=== PATIENT | male | born 1955 | race Caucasian/White ===

== ENCOUNTER 2023-09-12 17:58 | Inpatient (IN) | payer MEDICARE, MEDICAID ==
[~2023-09-12] VITALS: Ht 165.1 cm; Wt 68.1 kg
[2023-09-12] VITALS: BP 157/84; PULSE 70; RESP 19; TEMP 97.7
[~2023-09-12 17:58] MED LIST: ALOG25TA PO; ATOR40TA70 PO; FERR325T6 PO; GABA-290 PO; LEVO-65 PO; LISI20TA31 PO; METF-874 PO; MULT-622 PO; TAMS-11 PO
[2023-09-12 18:00] VITALS: O2SAT 96
[2023-09-12] MEDS: ACETAMINOPHEN 325MG TABLET PO STA (18:59)
[2023-09-12] MEDS: METOCLOPRAMIDE HCL 10MG/2ML VIAL IV ONE (19:00)
[2023-09-12 19:09] LABS: BASOPHILS % 0.6 % (0.0-2.0); EOSINOPHILS % 2.8 % (0.0-5.0); HEMATOCRIT. 38.5 % (42.0-52.0); LYMPHOCYTES % 33.5 % (20.0-50.0); MEAN CORPUSCULAR HEMOGLOBIN 28.7 pg (28.0-32.0); MEAN CORPUSCULAR HGB CONC 33.8 g/dL (31.0-37.0); MEAN CORPUSCULAR VOLUME 84.8 fL (80.0-94.0); MEAN PLATELET VOLUME 7.9 fl (7.4-10.4); MONOCYTES % 8.8 % (2.0-8.0); NEUTROPHILS % 54.3 % (40.0-76.0); PLATELET 185 x1000/uL (130-400); RED BLOOD CELL COUNT 4.54 mill/uL (4.7-6.1); RED CELL DISTRIBUTION WIDTH 14.3 % (11.6-14.6); WHITE BLOOD COUNT 7.5 x1000/uL (4.5-11.0)
[2023-09-12 19:14] LABS: CHLORIDE 105 mEq/L (98-107); SODIUM 137 mEq/L (136-145)
[2023-09-12 19:15] LABS: CARBON DIOXIDE 26 mEq/L (21-32)
[2023-09-12 19:16] LABS: CALCIUM 9.4 mg/dL (8.7-10.4)
[2023-09-12 19:19] LABS: PROTHROMBIN TIME 10.9 sec (9.6-11.0)
[2023-09-12 19:20] LABS: CREATININE 0.8 mg/dL (0.6-1.3); GLUCOSE 109 mg/dL (70-105); UREA NITROGEN BLOOD 13 mg/dL (9-23)
[2023-09-12 19:21] LABS: TROPONIN I HIGH SENSITIVITY 18 ng/L (3.0-53)
[2023-09-12 19:22] LABS: ALANINE AMINOTRANSFERASE 17 IU/L (10-49); ALBUMIN 4.5 g/dL (3.2-4.8); ASPARTATE AMINOTRANSFERASE 16 IU/L (<34); BILIRUBIN DIRECT 0.3 mg/dL (<=3.0)
[2023-09-12 19:23] LABS: BILIRUBIN TOTAL 0.8 mg/dL (0.1-1.0); PROTEIN TOTAL 6.9 g/dL (6.0-8.3)
[2023-09-12 20:00] VITALS: BP 108/66; PULSE 70; RESP 20; TEMP 97.8
[2023-09-12 20:42] LABS: TROPONIN I HIGH SENSITIVITY 17 ng/L (3.0-53)
[2023-09-13] MEDS ORDERED: DEXTROSE 50% WATER 50ML SYRINGE IV PRN (00:30)
[2023-09-13] MEDS ORDERED: DOCUSATE SODIUM 100MG CAPSULE PO PRN (00:30)
[2023-09-13] MEDS ORDERED: ACETAMINOPHEN 650MG/20.3ML UDC GT PRN (00:30)
[2023-09-13] MEDS ORDERED: IPRATROPIUM/ALBUTEROL 0.5-3(2.5)MG/3ML NEB HHN PRN (00:30)
[2023-09-13] MEDS ORDERED: METF-416 PO (00:40)
[2023-09-13] MEDS ORDERED: CLON0.1T PO (00:40)
[2023-09-13] MEDS ORDERED: TAMS-11 PO (00:40)
[2023-09-13] MEDS ORDERED: LISI-186 PO (00:40)
[2023-09-13] MEDS ORDERED: FERR325T23 PO (00:40)
[2023-09-13] MEDS ORDERED: ALOG25TA2 PO (00:40)
[2023-09-13] MEDS ORDERED: AMLO5TAB88 PO (00:40)
[2023-09-13] MEDS ORDERED: INSU100V3 (00:40)
[2023-09-13] MEDS ORDERED: HYDR-4001 PO (00:40)
[2023-09-13] MEDS ORDERED: HYDRALAZINE 20MG/ML VIAL IV PRN (00:45)
[2023-09-13 04:00] VITALS: BP 130/74; PULSE 56; RESP 20; TEMP 97.8
[2023-09-13 04:30] VITALS: BP 124/60; PULSE 47; RESP 18; TEMP 97.8
[2023-09-13] MEDS: BLOOD SUGAR DIAGNOSTIC STRIP TEST SCH (07:07)
[2023-09-13] MEDS: INSULIN LISPRO 100 UNITS/ML SUBCUT SCH (07:27)
[2023-09-13 08:05] VITALS: BP 147/72; PULSE 50; RESP 20; TEMP 98
[2023-09-13] MEDS: ENOXAPARIN 40MG/0.4ML SYR SUBCUT SCH (08:35)
[2023-09-13] MEDS: TAMSULOSIN HCL 0.4MG SR CAPSULE PO SCH (08:35)
[2023-09-13] MEDS: AMLODIPINE 5MG TABLET PO SCH (08:36)
[2023-09-13] MEDS: HYDRALAZINE HCL 50MG TABLET PO SCH (08:36)
[2023-09-13] MEDS: PANTOPRAZOLE 40MG DR TABLET PO SCH (08:36)
[2023-09-13] MEDS ORDERED: CLONIDINE 0.1MG TABLET PO SCH (09:00)
[2023-09-13] MEDS ORDERED: LISINOPRIL 5MG TABLET PO SCH (09:00)
[2023-09-13 12:00] VITALS: BP 134/66; PULSE 64; RESP 18; TEMP 98.2
[2023-09-13 14:12] LABS: CLARITY URINE CLEAR (CLEAR); COLOR URINE YELLOW (YELLOW); GLUCOSE URINE NEGATIVE (NEGATIVE); KETONES URINE NEGATIVE (NEGATIVE); LEUKOCYTE ESTERASE URINE NEGATIVE (NEGATIVE); NITRITE URINE NEGATIVE (NEGATIVE); OCCULT BLOOD URINE NEGATIVE (NEGATIVE); PH URINE 6.5 (4.5-8.0); PROTEIN URINE NEGATIVE (NEGATIVE); SPECIFIC GRAVITY URINE 1.012 (1.005-1.030)
[2023-09-13 14:24] LABS: *AMPHETAMINES SCREEN URINE NEGATIVE (NEGATIVE)
[2023-09-13 14:25] LABS: *BARBITURATES SCREEN URINE NEGATIVE (NEGATIVE); *BENZODIAZEPINES SCREEN URINE NEGATIVE (NEGATIVE); *COCAINE SCREEN URINE NEGATIVE (NEGATIVE); CANNABINOID URINE SCREEN NEGATIVE (NEGATIVE); ECSTASY MDMA SCREEN URINE NEGATIVE (NEGATIVE); METHADONE URINE SCREEN NEGATIVE (NEGATIVE); OPIATES URINE SCREEN NEGATIVE (NEGATIVE); PHENCYCLIDINE URINE SCREEN NEGATIVE (NEGATIVE)
[2023-09-13] MEDS: KETOROLAC 15MG/ML VIAL IV NR (15:22)
[2023-09-13 16:02] VITALS: BP 107/70; PULSE 67; RESP 20; TEMP 98.1
[2023-09-13] MEDS: GUAIFENESIN 200MG/10ML SUGAR FREE UDC PO PRN (17:19)
[2023-09-13 20:00] VITALS: BP 150/71; PULSE 61; RESP 18; TEMP 98.1
[2023-09-13] MEDS: MAGNESIUM/ALUMINUM HYDROXIDE/SIMETHICONE 30ML UDC PO PRN (22:15)
[2023-09-13] MEDS: LISINOPRIL 5MG TABLET PO SCH (22:16)
[2023-09-13] MEDS: ATORVASTATIN CALCIUM 40MG TABLET PO SCH (22:17)
[2023-09-14] VITALS: BP 139/77; PULSE 64; RESP 18; TEMP 98.1
[2023-09-14] MEDS: ACETAMINOPHEN 325MG TABLET PO PRN (01:20)
[2023-09-14 04:00] VITALS: BP 138/78; PULSE 60; RESP 20; TEMP 98.2
[2023-09-14 07:38] LABS: BASOPHILS % 0.4 % (0.0-2.0); EOSINOPHILS % 3.5 % (0.0-5.0); HEMATOCRIT. 38.3 % (42.0-52.0); HEMOGLOBIN. 12.9 g/dL (14.0-18.0); LYMPHOCYTES % 38.8 % (20.0-50.0); MEAN CORPUSCULAR HGB CONC 33.7 g/dL (31.0-37.0); MEAN CORPUSCULAR VOLUME 83.1 fL (80.0-94.0); MEAN PLATELET VOLUME 8.2 fl (7.4-10.4); MONOCYTES % 10.8 % (2.0-8.0); NEUTROPHILS % 46.5 % (40.0-76.0); PLATELET 199 x1000/uL (130-400); RED CELL DISTRIBUTION WIDTH 14.4 % (11.6-14.6)
[2023-09-14 08:00] VITALS: BP 146/65; PULSE 59; RESP 18; TEMP 97.4
[2023-09-14 09:14] LABS: CALCIUM 9.5 mg/dL (8.7-10.4); CARBON DIOXIDE 27 mEq/L (21-32); CHLORIDE 111 mEq/L (98-107); POTASSIUM 4.4 mEq/L (3.5-5.1); SODIUM 140 mEq/L (136-145)
[2023-09-14 09:20] LABS: CREATININE 0.8 mg/dL (0.6-1.3); GLUCOSE 106 mg/dL (70-105); TRIGLYCERIDE 89 mg/dL (0-150); UREA NITROGEN BLOOD 17 mg/dL (9-23)
[2023-09-14 09:21] LABS: CHOLESTEROL 152 mg/dL (<200); LDL CHOLESTEROL 103 mg/dL (5-100)
[2023-09-14 09:22] LABS: HDL CHOLESTEROL 42 mg/dL (>55)
[2023-09-14 09:24] LABS: T4 FREE 1.06 ng/dL (0.89-1.76); THYROID STIMULATING HORMONE 1.26 uIU/mL (0.55-4.78)
[2023-09-14 12:00] VITALS: BP 134/70; PULSE 60; RESP 20; TEMP 97.7
[2023-09-14 16:00] VITALS: PULSE 58; RESP 18; TEMP 97.8
[2023-09-14 16:57] LABS: TROPONIN I HIGH SENSITIVITY 18 ng/L (3.0-53)
[2023-09-14] MEDS: HYDROCODONE/ACETAMINOPHEN 5/325MG TABLET PO PRN (17:15)
[2023-09-14] MEDS ORDERED: NALOXONE HCL 0.4MG/ML VIAL IV PRN (17:15)
[2023-09-14] MEDS: ONDANSETRON 4MG ODT PO PRN (17:47)
[2023-09-14 20:00] VITALS: BP 127/61; PULSE 57; RESP 20; TEMP 97.9
[2023-09-14 23:58] LABS: TROPONIN I HIGH SENSITIVITY 15 ng/L (3.0-53)
[2023-09-15] VITALS: BP 118/59; PULSE 59; RESP 18; TEMP 97.5
[2023-09-15 04:00] VITALS: BP 135/65; PULSE 57; RESP 20; TEMP 97.9
[2023-09-15 07:29] LABS: CARBON DIOXIDE 29 mEq/L (21-32); CHLORIDE 106 mEq/L (98-107); POTASSIUM 4.3 mEq/L (3.5-5.1); SODIUM 139 mEq/L (136-145)
[2023-09-15 07:30] LABS: CALCIUM 9.2 mg/dL (8.7-10.4)
[2023-09-15 07:35] LABS: CREATININE 0.7 mg/dL (0.6-1.3); GLUCOSE 107 mg/dL (70-105)
[2023-09-15 07:41] LABS: TROPONIN I HIGH SENSITIVITY 19 ng/L (3.0-53)
[2023-09-15 07:53] LABS: UREA NITROGEN BLOOD 10 mg/dL (9-23)
[2023-09-15 07:54] LABS: PHOSPHORUS 3.7 mg/dL (2.5-4.9)
[2023-09-15 07:55] LABS: BASOPHILS % 0.9 % (0.0-2.0); EOSINOPHILS % 4.2 % (0.0-5.0); HEMATOCRIT. 37.1 % (42.0-52.0); HEMOGLOBIN. 12.5 g/dL (14.0-18.0); MEAN CORPUSCULAR HEMOGLOBIN 28.2 pg (28.0-32.0); MEAN CORPUSCULAR HGB CONC 33.8 g/dL (31.0-37.0); MEAN CORPUSCULAR VOLUME 83.6 fL (80.0-94.0); MEAN PLATELET VOLUME 8.3 fl (7.4-10.4); MONOCYTES % 10.6 % (2.0-8.0); NEUTROPHILS % 45.3 % (40.0-76.0); PLATELET 193 x1000/uL (130-400); RED BLOOD CELL COUNT 4.44 mill/uL (4.7-6.1); RED CELL DISTRIBUTION WIDTH 14.2 % (11.6-14.6)
[2023-09-15 08:00] VITALS: BP 152/68; PULSE 65; RESP 22; TEMP 98.6
[2023-09-15] MEDS ORDERED: HYDR50TA40 MT (10:19)
[2023-09-15] MEDS ORDERED: DIPHENHYDRAMINE HCL/ZINC ACET 28 GM CREAM TOP ONE (10:30)
[2023-09-15 12:00] VITALS: BP 104/68; PULSE 113; RESP 19; TEMP 97.7; TEMP 97.9
[2023-09-15 17:46] VITALS: BP 153/68; PULSE 80; RESP 18
== END 2023-09-15 17:55 | disposition home or self-care (01) | DRG 305 ==
LOC: ER 17:58 → 5WST 22:49 → 7WST 09-13 03:33
PROVIDERS: ADMIT Internal Medicine; ATTEND Internal Medicine
DX: I16.0 Hypertensive urgency (principal); R00.1 Bradycardia, unspecified; T46.5X5A Adverse effect of other antihypertensive drugs, initial encounter; D64.9 Anemia, unspecified; E11.21 Type 2 diabetes mellitus with diabetic nephropathy; E78.5 Hyperlipidemia, unspecified; F41.9 Anxiety disorder, unspecified; I10 Essential (primary) hypertension; M16.10 Unilateral primary osteoarthritis, unspecified hip; K57.30 Diverticulosis of large intestine without perforation or abscess without bleeding; X58.XXXA Exposure to other specified factors, initial encounter; Z86.73 Personal history of transient ischemic attack (TIA), and cerebral infarction without residual deficits; Z79.899 Other long term (current) drug therapy; Z91.148 Patient's other noncompliance with medication regimen for other reason; Z79.4 Long term (current) use of insulin; Z79.84 Long term (current) use of oral hypoglycemic drugs; Y93.89 Activity, other specified; Y92.89 Other specified places as the place of occurrence of the external cause; Y99.8 Other external cause status
CPT/HCPCS: 36415; 71045; 80048; 80061; 80076; 80305; 81003; 82962; 83036; 83735; 83880; 84100; 84439; 84443; 84484; 85025; 85379; 93005; 93306; 93970; 97162; 97166; 99285; J1650; J1885; J2765; Q0162

== ENCOUNTER 2024-11-15 09:56 | Emergency (ER) | payer MEDICARE, MEDICAID ==
[~2024-11-15] VITALS: Ht 162.6 cm; Wt 73.0 kg
[~2024-11-15 09:56] MED LIST changes: -ALOG25TA PO; +AMLO10TA80 PO; +ASPI-1406 PO; -FERR325T6 PO; -GABA-290 PO; +ISOS120T13 MT; -LEVO-65 PO; -METF-874 PO; -TAMS-11 PO; +TAMS-54 PO
[2024-11-15 09:59] VITALS: O2SAT 98
[2024-11-15 10:33] VITALS: TEMP 36.7
[2024-11-15] MEDS: IBUPROFEN 600MG TABLET PO ONE (10:53)
[2024-11-15] MEDS: GABAPENTIN 300MG CAPSULE PO ONE (10:53)
[2024-11-15 11:03] LABS: BASOPHILS % 0.5 % (0.0-2.0); EOSINOPHILS % 1.9 % (0.0-5.0); HEMATOCRIT. 34.9 % (42.0-52.0); HEMOGLOBIN. 11.8 g/dL (14.0-18.0); LYMPHOCYTES % 30.5 % (20.0-50.0); MEAN PLATELET VOLUME 7.9 fl (7.4-10.4); MONOCYTES % 10.7 % (2.0-8.0); NEUTROPHILS % 56.4 % (40.0-76.0); PLATELET 162 x1000/uL (130-400); RED BLOOD CELL COUNT 4.02 mill/uL (4.7-6.1); RED CELL DISTRIBUTION WIDTH 14.2 % (11.6-14.6)
[2024-11-15 11:25] LABS: CREATININE 1.0 mg/dL (0.6-1.3); UREA NITROGEN BLOOD 15 mg/dL (9-23)
[2024-11-15 11:27] LABS: ASPARTATE AMINOTRANSFERASE 17 IU/L (<34); BILIRUBIN DIRECT 0.3 mg/dL (<=3.0); BILIRUBIN TOTAL 0.7 mg/dL (0.1-1.0); PROTEIN TOTAL 6.3 g/dL (6.0-8.3)
[2024-11-15] MEDS ORDERED: GABA-1180 MT (12:19)
[2024-11-15 12:39] VITALS: BP 114/61; PULSE 58; RESP 11; O2SAT 98
== END 2024-11-15 13:03 | disposition home or self-care (01) ==
LOC: ER 09:56
DX: E11.40 Type 2 diabetes mellitus with diabetic neuropathy, unspecified (principal); E78.00 Pure hypercholesterolemia, unspecified; I10 Essential (primary) hypertension; D64.9 Anemia, unspecified; F41.9 Anxiety disorder, unspecified; E11.9 Type 2 diabetes mellitus without complications; Z98.890 Other specified postprocedural states; Z79.899 Other long term (current) drug therapy
CPT/HCPCS: 36415; 80048; 80076; 83880; 85025; 85379; 99283; A4606

== ENCOUNTER 2024-12-19 11:59 | Emergency (ER) | payer MEDICARE, MEDICAID ==
[~2024-12-19] VITALS: Ht 172.7 cm; Wt 67.0 kg
[~2024-12-19 11:59] MED LIST changes: +GABA-1180 MT
[2024-12-19 12:01] VITALS: O2SAT 97
[2024-12-19 14:51] LABS: BASOPHILS % 0.8 % (0.0-2.0); EOSINOPHILS % 8.6 % (0.0-5.0); HEMATOCRIT. 36.9 % (42.0-52.0); HEMOGLOBIN. 12.5 g/dL (14.0-18.0); LYMPHOCYTES % 29.0 % (20.0-50.0); MEAN PLATELET VOLUME 8.1 fl (7.4-10.4); MONOCYTES % 10.2 % (2.0-8.0); NEUTROPHILS % 51.4 % (40.0-76.0); PLATELET 179 x1000/uL (130-400); RED BLOOD CELL COUNT 4.30 mill/uL (4.7-6.1); RED CELL DISTRIBUTION WIDTH 13.9 % (11.6-14.6)
[2024-12-19 15:05] LABS: INR 1.0
[2024-12-19 15:06] LABS: CREATININE 0.9 mg/dL (0.6-1.3); UREA NITROGEN BLOOD 9 mg/dL (9-23)
[2024-12-19 15:08] LABS: ASPARTATE AMINOTRANSFERASE 21 IU/L (<34); BILIRUBIN DIRECT 0.3 mg/dL (<=3.0); BILIRUBIN TOTAL 0.8 mg/dL (0.1-1.0); PROTEIN TOTAL 7.2 g/dL (6.0-8.3)
[2024-12-19] MEDS ORDERED: LISI20TA31 MT (18:55)
[2024-12-19] MEDS ORDERED: ISOS120T13 MT (18:55)
[2024-12-19] MEDS ORDERED: AMLO10TA80 MT (18:55)
[2024-12-19] MEDS ORDERED: TAMS-54 MT (18:55)
[2024-12-19] MEDS ORDERED: TC1C15 TP (18:55)
[2024-12-19] MEDS ORDERED: METF-416 MT (18:55)
[2024-12-19] MEDS ORDERED: ATOR40TA70 MT (18:55)
[2024-12-19] MEDS ORDERED: GABA-1180 MT (18:55)
[2024-12-19] MEDS ORDERED: ASPI-1497 MT (18:55)
[2024-12-19] MEDS: LISINOPRIL 20MG TABLET PO ONE (18:59)
[2024-12-19] MEDS: GABAPENTIN 300MG CAPSULE PO ONE (18:59)
[2024-12-19] MEDS: AMLODIPINE 10MG TABLET PO ONE (18:59)
[2024-12-19] MEDS: METFORMIN HCL 500MG TABLET PO STA (19:08)
[2024-12-19 20:50] VITALS: BP 154/66; PULSE 56; RESP 16; TEMP 36.7; O2SAT 96
== END 2024-12-19 21:15 ==
LOC: ER 11:59
DX: L74.0 Miliaria rubra (principal); R60.0 Localized edema; E11.9 Type 2 diabetes mellitus without complications; I10 Essential (primary) hypertension; E78.00 Pure hypercholesterolemia, unspecified; M19.071 Primary osteoarthritis, right ankle and foot; N40.0 Benign prostatic hyperplasia without lower urinary tract symptoms; Z76.0 Encounter for issue of repeat prescription; Z79.82 Long term (current) use of aspirin; Z79.899 Other long term (current) drug therapy; Z79.84 Long term (current) use of oral hypoglycemic drugs; Z89.429 Acquired absence of other toe(s), unspecified side
CPT/HCPCS: 36415; 80048; 80076; 82962; 85025; 93970; 99284